=== PATIENT | female | born 1950 | race Caucasian/White ===

== ENCOUNTER 2020-03-03 09:05 | Emergency (ER) | payer MEDICARE ==
[2020-03-03] MEDS ORDERED: BUFFERED LIDOCAINE 10 ML SYRINGE SUBQ STA (09:13)
[2020-03-03] MEDS ORDERED: cephALEXin 250 MG CAPSULE PO STA (09:13)
[2020-03-03 09:14] VITALS: BP 184/104
--- NOTE | 2020-03-03 09:14 | ED Physician Documentation ---
PD HPI UPPER EXT INJURY - Stated complaint Stated Complaint: R HAND LAC - History obtained from History obtained from: Patient (Relatively healthy 70-year-old woman cut herself on broken glass last night, not exactly sure of the time but it was around 12 hours ago to her dominant right hand. She is right-handed. No other injuries.) Review of Systems Constitutional: reports: Reviewed and negative Ears: reports: Reviewed and negative Nose: reports: Reviewed and negative PD PAST MEDICAL HISTORY - Allergies Allergies/Adverse Reactions: Allergies Allergy/AdvReac Type Severity Reaction Status Date / Time No Known Drug Allergies Allergy Verified 03/03/20 09:15 PD ED PE NORMAL - Vitals Vital signs reviewed: Yes - General General: Alert and oriented X 3, No acute distress - Extremities Extremities: Other (She has a 1.5 cm laceration and on the palmar side of the right hand near the first MCP with intact tendon and neurovascular status in the thumb.) - Neuro Neuro: Alert and oriented X 3, Normal speech Results - Vitals Vitals: Vital Signs - 24 hr 03/03/20 09:10 Temperature 36.4 C L Heart Rate 86 Respiratory 18 Rate Blood Pressure 184/104 H O2 Saturation 99 Oxygen O2 Source Room air Procedures - Laceration (location) R hand Length in cm: 1.5 Wound type: Linear, Superficial Neurovascular status: Sensory intact, Motor intact, Vascular intact Anesthesia: Lidocaine 1%, With bicarb Wound Preparation: Irrigated copiously NS Skin layer closure: Nylon, Interrupted, Size #-0 - enter number (4-0), Sutures - enter # (3) Other: Tetanus UTD Complexity: Simple PD MEDICAL DECISION MAKING - ED course ED course: We discussed the pros and cons of closure, she is about 12 hours, but it was a clean wound and she did irrigate and dress it at the time so I think the infection risk is low. Departure - Departure Disposition: 01 Home, Self Care Clinical Impression: Laceration Condition: Good Record reviewed to determine appropriate education?: Yes Instructions: ED Laceration Hand Comments: Come back for any signs of infection which would include: Redness, swelling, drainage, increased pain, or fevers. You can wash it soap and water. Keep it covered with a band-aid; avoid neosporin. Follow-up with your physician in about 14 days for suture removal.
== END 2020-03-03 09:42 | disposition home or self-care (01) ==
LOC: ED 09:05
DX: S61.411A Laceration without foreign body of right hand, initial encounter (principal)
CPT/HCPCS: 12001; 99282; 99283; A9270